=== PATIENT | male | born 1960 | race African-American/Black ===

== ENCOUNTER 2016-08-27 03:04 | Emergency (ER) | payer MEDICAID ==
[~2016-08-27] VITALS: Ht 177.8 cm; Wt 86.6 kg
[2016-08-27] MEDS ORDERED: LEVOFLOXACIN/PMX 750MG/150ML 150 ML ONE (03:57)
[2016-08-27] MEDS ORDERED: LEVOFLOXACIN/PMX 750MG/150ML 150 ML IVPB ONE (04:00)
[2016-08-27] MEDS ORDERED: SODIUM CHLORIDE 0.9% 1,000ML IVBOLUS ONE (04:00)
[2016-08-27 04:10] LABS: HEMOGLOBIN 13.6 g/dL (13.7-18.0)
[2016-08-27 04:25] LABS: ASPARTATE AMINO TRANSFERASE 21 U/L (15-37); BLOOD UREA NITROGEN 12 mg/dL (7-18)
[2016-08-27 06:25] VITALS: BP 136/77
== END 2016-08-27 06:28 | disposition home or self-care (01) ==
LOC: ED 06:08
DX: J15.9 Unspecified bacterial pneumonia (principal); I10 Essential (primary) hypertension
CPT/HCPCS: 36415; 71010; 80053; 83605; 85025; 87040; 93005; 96365; 96366; 99285; J1956; J7030

== ENCOUNTER 2017-06-09 22:07 | Emergency (ER) | payer MEDICAID ==
[~2017-06-09] VITALS: Ht 177.8 cm; Wt 92.4 kg
[2017-06-09] MEDS ORDERED: SODIUM CHLORIDE 0.9% 1,000ML IVBOLUS ONE (22:30)
[2017-06-09 23:02] LABS: BASOPHILS # (AUTO) 0.02 x10^3/uL (0-0.1); BASOPHILS % (AUTO) 0 % (0-1); EOSINOPHILS % (AUTO) 0 % (1-7); LYMPHOCYTES # (AUTO) 0.51 x10^3/uL (1-3.4); LYMPHOCYTES % (AUTO) 8 % (22-44); MD NO; MEAN CORPUSCULAR HEMOGLOBIN 25.7 pg (27.5-34.5); MEAN CORPUSCULAR HGB CONC 33.2 g/dL (33.2-36.2); MEAN CORPUSCULAR VOLUME 77.2 fL (81-97); MEAN PLATELET VOLUME 7.3 fL (7.4-10.4); MONOCYTES # (AUTO) 0.47 x10^3/uL (0.2-0.8); MONOCYTES % (AUTO) 7 % (2-9); NEUTROPHILS % (AUTO) 84 % (42-75); PLATELET COUNT 216 x10^3/uL (130-400); RED BLOOD COUNT 5.39 x10^6/uL (4.38-5.82); RED CELL DISTRIBUTION WIDTH 16.1 % (9.4-14.8)
[2017-06-09 23:02] LABS: RAPID INFLUENZA A Negative (Negative); RAPID INFLUENZA B Negative (Negative)
[2017-06-09 23:15] LABS: ALBUMIN 3.8 g/dL (3.4-5.0); ANION GAP 10 mmol/L (5-15); CALCIUM 8.6 mg/dL (8.5-10.1); CHLORIDE 104 mmol/L (98-107); CREATININE 1.55 mg/dL (0.7-1.3)
[2017-06-09 23:19] LABS: TROPONIN I < 0.015 ng/mL (0.000-0.045)
[2017-06-10] MEDS ORDERED: KETOROLAC 30 MG/1 ML IVPush ONE
[2017-06-10] MEDS ORDERED: KETOROLAC 30 MG/1 ML ONE (00:10)
[2017-06-10 00:20] VITALS: BP 142/78
== END 2017-06-10 00:22 | disposition home or self-care (01) ==
LOC: ED 23:36
DX: R05 Cough (principal); R53.1 Weakness; I10 Essential (primary) hypertension
CPT/HCPCS: 36415; 71010; 80048; 82040; 84484; 85025; 87400; 93005; 96361; 96374; 99285; J1885; J7030